=== PATIENT | female | born 1995 | race African-American/Black ===

== ENCOUNTER 2018-02-28 07:32 | Emergency (ER) | payer OTHER ==
[2018-02-28 07:43] VITALS: BP 134/77; PULSE 101; TEMP 98.3; BMI 36.0
[2018-02-28] MEDS ORDERED: ALBUTEROL SO4 2.5/IPRATROPIUM 0.5 INH SOL 3 ML VIAL.NEB. NEB ONE ×2 (08:07→08:30)
[2018-02-28] MEDS ORDERED: IBUPROFEN 600 MG TABLET (FP) PO ONE ×2 (08:44→09:33)
--- NOTE | 2018-02-28 08:46 | PDOC ---
History of Present Illness - General History Source: Patient Exam Limitations: No Limitations <Stacey Bojorquez - Last Filed: 02/28/18 09:49> - General History Source: Patient Exam Limitations: No Limitations - History of Present Illness Initial Comments: 02/28/18 09:10 The patient is a 22 year old female, with a significant past medical history of asthma (no meds or hospitalization), who presents to the emergency department complaining of chest tightness and sore throat since yesterday. She describes her chest pain tightness as mild, without radiation or modifying factors. She notes that it is hard for her to eat and swallow due to her sore throat. She denies any sick contacts or recent travel. The patient denies headache or dizziness. Denies fever, chills, nausea, vomiting, diarrhea and constipation. Allergies: None Past surgical history: None reported Social History: No alcohol, tobacco or drug use reported <Timmy Hendrix - Last Filed: 02/28/18 09:54> - General Chief Complaint: Sore Throat Stated Complaint: SORE THORAT, CHEST PAIN Past History - Past Medical History Asthma: Yes (LAST ATTACK AT 8 YEARS OLD) Cancer: No Cardiac Disorders: No COPD: No Diabetes: No HTN: No Psychiatric Problems: Yes (ANXIETY) Seizures: No Thyroid Disease: No - Immunization History Immunization Up to Date: Yes - Suicide/Smoking/Psychosocial Hx Smoking History: Never smoked Have you smoked in the past 12 months: No Hx Alcohol Use: No Drug/Substance Use Hx: No Substance Use Type: None Hx Substance Use Treatment: No <Stacey Bojorquez - Last Filed: 02/28/18 09:49> <Timmy Hendrix - Last Filed: 02/28/18 09:54> - Past Medical History Allergies/Adverse Reactions: Allergies Allergy/AdvReac Type Severity Reaction Status Date / Time Penicillins Allergy Verified 02/28/18 07:43 Home Medications: Ambulatory Orders Vit/Iron Fum/Folic AC [ Tablet] 1 each PO DAILY 01/17/16 Acetaminophen [Tylenol .Regular Strength -] 650 mg PO Q3H PRN #0 tablet Benzocaine [Americaine 20% [place] -] 1 spray TP PRN PRN #0 bottle 02/29/16 Docusate Sodium [Colace -] 100 mg PO BID #60 capsule 02/29/16 Ferrous Sulfate [Feosol] 325 mg PO DAILY #30 ud 02/29/16 Ibuprofen [Motrin -] 200 mg PO Q4H PRN #0 tablet 02/29/16 Witch Karol 50% (Tucks) [Tucks Pads -] 1 pad TP PRN PRN #0 pad 02/29/16 Fluticasone Prop 0.05% Nasal [Flonase -] 1 spray NS DAILY #1 bot 02/28/18 Loratadine [Claritin] 10 mg PO DAILY #30 tablet MDD 1 02/28/18 Review of Systems - Review of Systems Able to Perform ROS?: Yes Comments:: 02/28/18 09:11 GENERAL/CONSTITUTIONAL: No fever or chills. No weakness. HEAD, EYES, EARS, NOSE AND THROAT: (+) Sore throat. No change in vision. No ear pain or discharge. CARDIOVASCULAR: (+) Chest tightness. Shortness of breath. RESPIRATORY: No cough, wheezing, or hemoptysis. GASTROINTESTINAL: No nausea, vomiting, diarrhea or constipation. GENITOURINARY: No dysuria, frequency, or change in urination. MUSCULOSKELETAL: No joint or muscle swelling or pain. No neck or back pain. SKIN: No rash NEUROLOGIC: No headache, vertigo, loss of consciousness, or change in strength/ sensation. ENDOCRINE: No increased thirst. No abnormal weight change. HEMATOLOGIC/LYMPHATIC: No anemia, easy bleeding, or history of blood clots. ALLERGIC/IMMUNOLOGIC: No hives or skin allergy. <Timmy Hendrix - Last Filed: 02/28/18 09:54> *Physical Exam - Vital Signs Last Vital Signs Temp Pulse Resp BP Pulse Ox 98.3 F 101 H 20 134/77 99 02/28/18 07:40 02/28/18 07:40 02/28/18 07:40 02/28/18 07:40 02/28/18 07:40 <Stacey Bojorquez - Last Filed: 02/28/18 09:49> - Vital Signs Last Vital Signs Temp Pulse Resp BP Pulse Ox 98.3 F 101 H 20 134/77 99 02/28/18 07:40 02/28/18 07:40 02/28/18 07:40 02/28/18 07:40 02/28/18 07:40 - Physical Exam Comments: 02/28/18 09:11 GENERAL: Awake, alert, and fully oriented, in no acute distress HEAD: No signs of trauma EYES: PERRLA, EOMI, sclera anicteric, conjunctiva clear ENT: (+) Bilateral enlargement in nose, [place] in the posteriororopharynx. NECK: Normal ROM, supple, no JVD, or masses LUNGS: Breath sounds equal, clear to auscultation bilaterally. No wheezes, and no crackles HEART: Regular rate and rhythm, normal S1 and S2, no murmurs, rubs or gallops ABDOMEN: Soft, nontender, normoactive bowel sounds. No guarding, no rebound. No masses EXTREMITIES: Normal range of motion, no edema. No clubbing or cyanosis. No cords, erythema, or tenderness NEUROLOGICAL: Alert and oriented x 3. Moves all extremities. Face is symmetric. SKIN: Warm, Dry, normal turgor, no rashes or lesions noted. <Timym Hendrix - Last Filed: 02/28/18 09:54> ED Treatment Course - ADDITIONAL ORDERS Additional order review: Laboratory Results 02/28/18 08:30 Urine HCG, Qual Negative - RADIOLOGY Radiology Studies Ordered: Category Date Time Status CHEST PA & LAT [RAD] Stat Radiology 02/28/18 08:07 Ordered - Medications Given in the ED: ED Medications Discontinued Medications Generic Name Dose Route Start Last Admin Trade Name Freq PRN Reason Stop Dose Admin Albuterol/Ipratropium 1 amp 02/28/18 08:07 02/28/18 08:30 Duoneb - NEB 02/28/18 08:08 1 amp ONCE ONE Administration <Stacey Bojorquez - Last Filed: 02/28/18 09:49> - ADDITIONAL ORDERS Additional order review: Laboratory Results 02/28/18 08:30 Urine HCG, Qual Negative - Medications Given in the ED: ED Medications Discontinued Medications Generic Name Dose Route Start Last Admin Trade Name Freq PRN Reason Stop Dose Admin Albuterol/Ipratropium 1 amp 02/28/18 08:07 02/28/18 08:30 Duoneb - NEB 02/28/18 08:08 1 amp ONCE ONE Administration <Timmy Hendrix - Last Filed: 02/28/18 09:54> Medical Decision Making - Medical Decision Making 02/28/18 08:45 22 yo F with h/o asthma, here c/o sore throat and cheste tightness. no f/c. no sick contacts. did not take any meds prior to arrival. differential asthma, allergies, post nasal drip, viral pharyngitis, motrin, . plan cxr ekg. ucg. <Stacey Bojorquez - Last Filed: 02/28/18 09:49> *DC/Admit/Observation/Transfer - Discharge Dispostion Decision to Admit order: No <Stacey Bojorquez - Last Filed: 02/28/18 09:49> - Attestations Scribe Attestion: 02/28/18 09:11 Documentation prepared by Timmy Hendrix, acting as ophthalmic medical assistant for Stacey Bojorquez MD <Timmy Hendrix - Last Filed: 02/28/18 09:54> Diagnosis at time of Disposition: Post-nasal drip - Discharge Dispostion Disposition: HOME Condition at time of disposition: Improved - Prescriptions Prescriptions: Fluticasone Prop 0.05% Nasal [Flonase -] 1 spray NS DAILY #1 bot Loratadine [Claritin] 10 mg PO DAILY #30 tablet MDD 1 - Referrals Referrals: Nima Garcia MD [Primary Care Provider] - - Patient Instructions Printed Discharge Instructions: Allergic Rhinitis Additional Instructions: you should follow up with your primary doctor. use flonase one spray ea nostril daily. take Claritin D to help with post nasal drip. you can take motrin 600 mg every 8 hrs as needed for your pain. - Post Discharge Activity
== END 2018-02-28 10:10 | disposition home or self-care (01) ==
LOC: JER 07:32
PROC: 3E0F7GC Introduction of Other Therapeutic Substance into Respiratory Tract, Via Natural or Artificial Opening (ICD-10-PCS; principal; 2018-02-28)
DX: J30.89 Other allergic rhinitis (principal); R09.82 Postnasal drip
CPT/HCPCS: 71046-TC-FY; 84703; 94640; 99281-25; J7620

== ENCOUNTER 2018-12-15 08:21 | Emergency (ER) | payer OTHER ==
[2018-12-15 08:25] VITALS: BP 121/67; PULSE 89; TEMP 98.6; BMI 37.8
[2018-12-15] MEDS ORDERED: IBUPROFEN 400 MG TABLET (FP) PO ONE ×2 (08:36→08:42)
--- NOTE | 2018-12-15 08:48 | PDOC ---
History of Present Illness - General Chief Complaint: Sore Throat Stated Complaint: SORE THROAT Time Seen by Provider: 12/15/18 08:32 History Source: Patient Exam Limitations: No Limitations - History of Present Illness Initial Comments: 12/15/18 patient came with complaints of sore throat pain that started yesterday and is progressively worsen. Worsen this morning when she woke up. Denies fever, earache, but has some mild sore throat pain with postnasal drainage. No cough Timing/Duration: reports: just prior to arrival Severity: reports: mild, moderate Associated Symptoms: reports: cough, nasal congestion, sore throat Past History - Travel Traveled outside of the country in the last 30 days: No Close contact w/someone who was outside of country & ill: No - Past Medical History Allergies/Adverse Reactions: Allergies Allergy/AdvReac Type Severity Reaction Status Date / Time Penicillins Allergy Verified 12/15/18 08:22 Home Medications: Ambulatory Orders Albuterol Sulfate Inhaler - [Ventolin Hfa Inhaler -] 1 - 2 inh PO QID PRN Asthma: Yes (LAST ATTACK AT 8 YEARS OLD) Cancer: No Cardiac Disorders: No COPD: No Diabetes: No HTN: No Psychiatric Problems: Yes (ANXIETY) Seizures: No Thyroid Disease: No - Immunization History Immunization Up to Date: Yes - Suicide/Smoking/Psychosocial Hx Smoking History: Never smoked Have you smoked in the past 12 months: No Hx Alcohol Use: No Drug/Substance Use Hx: No Substance Use Type: None Hx Substance Use Treatment: No Review of Systems - Review of Systems Able to Perform ROS?: Yes Is the patient limited Malay proficient: Yes Constitutional: Yes: Symptoms Reported, See HPI, Malaise HEENTM: Yes: Symptoms Reported, See HPI, Nose Congestion, Throat Swelling, Difficulty Swallowing Respiratory: Yes: Symptoms reported, See HPI, Cough ABD/GI: No: Symptoms Reported Musculoskeletal: No: Symptoms Reported Integumentary: Yes: See HPI. No: Symptoms Reported Neurological: Yes: See HPI. No: Symptoms reported, Headache All Other Systems: Reviewed and Negative *Physical Exam - Vital Signs Last Vital Signs Temp Pulse Resp BP Pulse Ox 98.6 F 89 22 H 121/67 100 12/15/18 08:23 12/15/18 08:23 12/15/18 08:23 12/15/18 08:23 12/15/18 08:23 - Physical Exam General Appearance: Yes: Nourished, Appropriately Dressed, Apparent Distress, Mild Distress HEENT: positive: [place], Pharyngeal Erythema, Nasal Congestion, Rhinorrhea. negative: Normal ENT Inspection, TMs Normal (congested but clear), Pharynx Normal (mild erythema, no exudate or swelling noted to tonsils. Has some mild postnasal drainage noted clear), Tonsillar Exudate, Sinus Tenderness Neck: positive: Supple, Lymphadenopathy (R), Lymphadenopathy (L). negative: Tender Respiratory/Chest: positive: Lungs Clear, Normal Breath Sounds. negative: Respiratory Distress Gastrointestinal/Abdominal: positive: Soft. negative: Tender Musculoskeletal: positive: Normal Inspection Extremity: positive: Normal Capillary Refill, Normal Inspection Integumentary: positive: Dry, Warm, Pale Neurologic: positive: [employer] II-XII NML intact, Fully Oriented, Alert, Normal Mood/ Affect, Normal Response, Motor Strength 5/5 Moderate Sedation - Procedure Monitoring Vital Signs: Procedure Monitoring Vital Signs Temperature 98.6 F 12/15/18 08:23 Pulse Rate 89 12/15/18 08:23 Respiratory Rate 22 H 12/15/18 08:23 Blood Pressure 121/67 12/15/18 08:23 O2 Sat by Pulse Oximetry (%) 100 12/15/18 08:23 Progress Note - Progress Note Progress Note: Rapid strep test negative, no evidence of any other significant illness other than viral, will treat conservatively *DC/Admit/Observation/Transfer Diagnosis at time of Disposition: URI, acute - Discharge Dispostion Disposition: HOME Condition at time of disposition: Stable Decision to Admit order: No - Referrals Referrals: Nima Garcia MD [Primary Care Provider] - - Patient Instructions Printed Discharge Instructions: DI for Common Cold Additional Instructions: Rest, drink lots of fluids: Teas, water, soups, Pedialyte Saltwater gargles Steamy showers/seem to face break up mucus Avoid contact with others until fevers and cough resolved Lots of handwashing and good hygiene Continue [id number] medications for symptomatic relief Tylenol or Motrin for fever and pain Followup with private physician in one to 2 days as needed Return to emergency department for worsened symptoms, fevers, dehydration - Post Discharge Activity Forms/Work/School Notes: Back to Work
== END 2018-12-15 09:36 | disposition home or self-care (01) ==
LOC: JERFT 08:21
DX: J06.9 Acute upper respiratory infection, unspecified (principal); B97.89 Other viral agents as the cause of diseases classified elsewhere; Z87.09 Personal history of other diseases of the respiratory system
CPT/HCPCS: 87070; 87077; 87880; 99281-25

== ENCOUNTER 2019-04-10 23:49 | Emergency (ER) | payer OTHER ==
[2019-04-10 23:58] VITALS: BMI 38.2
--- NOTE | 2019-04-11 00:30 | PDOC ---
History of Present Illness - General History Source: Patient Exam Limitations: No Limitations - History of Present Illness Initial Comments: 04/11/19 00:24 Patient is a 23-year-old female with history of asthma with no intubations, here with complaints of right thigh swelling and pain 4 days. Patient states she had a little pimple which he thought was a here bump until picked at it, then noticed that it was getting red and swollen. Patient states she got hot flashes but did not think she had a fever and lightheadedness. Denies nausea, vomiting or chills. States took a hot shower today and the area started leaking a clear liquid PMD: Dr. Nima Garcia PMHX: As above PSOCHX: neg cig, neg drug, neg etoh ALL: PCN - body numbness/weakness GENERAL/CONSTITUTIONAL: No fever or chills. No weakness. No weight change. HEAD, EYES, EARS, NOSE AND THROAT: No change in vision. No ear pain or discharge. No sore throat. CARDIOVASCULAR: No chest pain or shortness of breath. RESPIRATORY: No cough, wheezing, or hemoptysis. GASTROINTESTINAL: No nausea, vomiting, diarrhea or constipation. No rectal bleeding. GENITOURINARY: No dysuria, frequency, or change in urination. MUSCULOSKELETAL: No joint or muscle swelling or pain. No neck or back pain. SKIN AND BREASTS: (+) rash (-) easy bruising. NEUROLOGIC: No headache, vertigo, loss of consciousness, or loss of sensation. PSYCHIATRIC: No depression or anxiety. ENDOCRINE: No increased thirst. No abnormal weight change. HEMATOLOGIC/LYMPHATIC: No anemia, easy bleeding, or history of blood clots. ALLERGIC/IMMUNOLOGIC: No hives or skin allergy. No latex allergy. GENERAL: The patient is awake, alert, and fully oriented, in no acute distress. HEAD: Normal with no signs of trauma. EYES: Pupils equal, round and reactive to light, extraocular movements intact, sclera anicteric, conjunctiva clear. ENT: Ears normal, nares patent, oropharynx clear without exudates. Moist mucous membranes. NECK: Normal range of motion, supple without lymphadenopathy, JVD, or masses. LUNGS: Breath sounds equal, clear to auscultation bilaterally. No wheezes, and no crackles. HEART: Regular rate and rhythm, normal S1 and S2 without murmur, rub. ABDOMEN: Soft, nontender, normoactive bowel sounds. No guarding, no rebound. No masses. EXTREMITIES: Normal range of motion, no edema. No clubbing or cyanosis. No cords, erythema, or tenderness. NEUROLOGICAL: Cranial nerves II through XII grossly intact. Normal speech, normal gait. PSYCH: Normal mood, normal affect. SKIN: Warm, (+) tender fluculent, erythemaous area to the left thigh, normal turgor. <Benedict Joyner - Last Filed: 04/11/19 04:40> <Cate Howe - Last Filed: 04/12/19 09:28> - General Chief Complaint: Abscess Boil Stated Complaint: ABSCESS BOIL Time Seen by Provider: 04/11/19 00:19 Past History - Past Medical History Asthma: Yes (LAST ATTACK AT 8 YEARS OLD) Cancer: No Cardiac Disorders: No COPD: No Diabetes: No HTN: No Psychiatric Problems: Yes (ANXIETY) Seizures: No Thyroid Disease: No - Immunization History Immunization Up to Date: Yes - Suicide/Smoking/Psychosocial Hx Smoking History: Unknown if ever smoked Have you smoked in the past 12 months: No Information on smoking cessation initiated: No Hx Alcohol Use: No Drug/Substance Use Hx: No Substance Use Type: None Hx Substance Use Treatment: No <Benedict Joyner - Last Filed: 04/11/19 04:40> <Cate Howe - Last Filed: 04/12/19 09:28> - Past Medical History Allergies/Adverse Reactions: Allergies Allergy/AdvReac Type Severity Reaction Status Date / Time Penicillins Allergy Verified 04/11/19 01:37 Home Medications: Ambulatory Orders Albuterol Sulfate Inhaler - [Ventolin Hfa Inhaler -] 1 - 2 inh PO QID PRN *Physical Exam - Vital Signs Last Vital Signs Temp Pulse Resp BP Pulse Ox 100 F H 131 H 20 129/81 99 04/10/19 23:51 04/10/19 23:51 04/10/19 23:51 04/10/19 23:51 04/10/19 23:51 <Benedict Joyner - Last Filed: 04/11/19 04:40> - Vital Signs Last Vital Signs Temp Pulse Resp BP Pulse Ox 97.4 F L 96 H 18 127/76 98 04/11/19 03:39 04/11/19 03:39 04/11/19 03:39 04/11/19 03:39 04/11/19 03:39 <Cate Howe - Last Filed: 04/12/19 09:28> Procedures - Incision and Drainage I&D Site: Left: Leg (thigh) Anesthesia: 1% Lidocaine Blade Size: 11 Plain Packing: Yes Complications: none Dressing: Yes (dry sterile gauze) <Benedict Joyner - Last Filed: 04/11/19 04:40> ED Treatment Course - Medications Given in the ED: ED Medications Discontinued Medications Generic Name Dose Route Start Last Admin Trade Name Radha PRN Reason Stop Dose Admin Clindamycin HCl 300 mg 04/11/19 00:31 04/11/19 01:05 Cleocin - PO 04/11/19 00:32 300 mg ONCE ONE Administration Ibuprofen 600 mg 04/11/19 00:34 04/11/19 01:05 Motrin - PO 04/11/19 00:35 600 mg ONCE ONE Administration Oxycodone/Acetaminophen 1 combo 04/11/19 00:32 04/11/19 01:05 Percocet 5/325 - PO 04/11/19 00:33 1 combo ONCE ONE Administration <Cate Howe - Last Filed: 04/12/19 09:28> Medical Decision Making - Medical Decision Making 04/11/19 00:24 Patient is a 23-year-old female with history of asthma with no intubations, here with complaints of right thigh swelling and pain 4 days. Patient states she had a little pimple which he thought was a here bump until picked at it, then noticed that it was getting red and swollen. Patient states she got hot flashes but did not think she had a fever and lightheadedness. Denies nausea, vomiting, fever, chills. States took a hot shower today and the area started leaking a clear liquid. Symptoms concerning for cellulitis with an abscess. Aspiration done noted to have purulent material. I&D done Patient continues to have elevated pulse. Will treat with Motrin and by mouth fluids and repeat vital signs. 04/11/19 03:26 Pulse rate 96 Selected Entries 04/11/19 03:39 Temperature 97.4 F L Pulse Rate [ 96 H Left] Respiratory 18 Rate Blood Pressure 127/76 [Right Arm] O2 Sat by Pulse 98 Oximetry (%) I discussed the physical exam findings, ancillary test results and final diagnoses with the patient. I answered all of the patient's questions. The patient was satisfied with the care received and felt comfortable with the discharge plan and treatment plan. The Patient agrees to follow up with the primary care physician within 24-72 hours. <Benedict Joyner - Last Filed: 04/11/19 04:40> *DC/Admit/Observation/Transfer <Benedict Joyner - Last Filed: 04/11/19 04:40> - Attestations Physician Attestion: I reviewed the case with the mid-level practitioner and agree with the mid- level practitioner's assessment, diagnosis and disposition. <HoweNinfaCate - Last Filed: 04/12/19 09:28> Diagnosis at time of Disposition: Abscess Cellulitis Qualifiers: Site of cellulitis: extremity Site of cellulitis of extremity: lower extremity Laterality: left Qualified Code(s): L03.116 - Cellulitis of left lower limb - Discharge Dispostion Disposition: HOME Condition at time of disposition: Stable - Referrals Referrals: Nima Garcia MD [Primary Care Provider] - - Patient Instructions Printed Discharge Instructions: DI for Cellulitis -- Adult, DI for Skin Abscess Additional Instructions: Your Discharge Instructions: You must call primary care physician within 24 hours to arrange follow-up. Return to the Emergency Department with any new, persistent or worsening symptoms, for fever, chills, SOB, dizziness or any other concerning changes that may occur. Continue Tylenol and Motrin for ear pain and fever. Return to your PMD or fast track emergency room in 48 hours for wound check. Take antibiotics as prescribed until it is completed. Warm compress to the area as often as it can be done. - Post Discharge Activity Forms/Work/School Notes: Back to Work
[2019-04-11] MEDS ORDERED: CLINDAMYCIN HCL 300 MG CAPSULE PO ONE (00:31)
[2019-04-11] MEDS ORDERED: IBUPROFEN 600 MG TABLET (FP) PO ONE ×2 (00:34→00:59)
[2019-04-11] MEDS ORDERED: CLINDAMYCIN HCL 150 MG CAPSULE (FP) ONE (00:59)
[2019-04-11 03:41] VITALS: BP 127/76; PULSE 96; TEMP 97.4
== END 2019-04-11 03:41 | disposition home or self-care (01) ==
LOC: JER 23:49
PROC: 0J9P0ZZ Drainage of Left Lower Leg Subcutaneous Tissue and Fascia, Open Approach (ICD-10-PCS; principal; 2019-04-10)
DX: L03.116 Cellulitis of left lower limb (principal)
CPT/HCPCS: 10060; 99282-25

== ENCOUNTER 2019-07-15 16:31 | Emergency (ER) | payer OTHER ==
[2019-07-15] MEDS ORDERED: SODIUM CHLORIDE 0.9% 500 ML INFUS.BAG IV ONE (17:11)
[2019-07-15] MEDS ORDERED: diphenhydrAMINE HCL 25 MG CAPSULE (FP) PO ONE (17:11)
[2019-07-15] MEDS ORDERED: METOCLOPRAMIDE HCL INJECTION 10 MG/2 ML VIAL IVPUSH ONE (17:11)
[2019-07-15] MEDS ORDERED: ACETAMINOPHEN 1000 MG/100 ML VIAL (NON FORMULARY) IVPB ONE (17:11)
[2019-07-15 17:12] VITALS: BMI 37.0
[2019-07-15] MEDS ORDERED: METOCLOPRAMIDE HCL INJECTION 10 MG/2 ML VIAL ONE (17:15)
[2019-07-15] MEDS ORDERED: LORazepam 2 MG/ML SDV VIAL ONE ×2 (17:15→18:35)
[2019-07-15] MEDS ORDERED: ACETAMINOPHEN INJECTION 100 ML IVPB ONE (17:16)
[2019-07-15] MEDS ORDERED: diazePAM 5 MG TABLET PO ONE (17:24)
--- NOTE | 2019-07-15 17:26 | PDOC ---
History of Present Illness - General History Source: Patient Exam Limitations: No Limitations - History of Present Illness Initial Comments: Faviola Mares is a 23 yo F who denies having any pmh who presents to the [facility] er with a headache after she fell and bumped her head on Friday. The patient went to [facility] where she had a cat scan performed which was negative and she was diagnosed with a head contusion. The patient now states that her headache has persisted and she has significant pain whenever she sees light or hears any noise. She states the pain is localized to the left side of her head. The headache is associated with thumping. Patient endorses nausea but no emesis. The patient states that since yesterday her right leg has been shaking and she cannot get it to stop shaking. She states that she is able to walk with ease but her leg wont stop shaking. When she tries to stand on her right leg she states that her left leg starts shaking. PCP: Nima garcia PSH: None reported Social Hx: Denies smoking, drinking, or other substance abuse Allergies: Penicillins <Rancho Bautista - Last Filed: 07/15/19 19:08> <Carey Campbell - Last Filed: 07/16/19 22:09> - General Chief Complaint: Migraine Headache Stated Complaint: LEG WEAKNESS Time Seen by Provider: 07/15/19 16:59 Past History - Past Medical History Asthma: Yes (LAST ATTACK AT 8 YEARS OLD) Cancer: No Cardiac Disorders: No COPD: No Diabetes: No HTN: No Psychiatric Problems: Yes (ANXIETY) Seizures: No Thyroid Disease: No - Immunization History Immunization Up to Date: Yes - Psycho Social/Smoking Cessation Hx Smoking History: Never smoked Have you smoked in the past 12 months: No Information on smoking cessation initiated: No Hx Alcohol Use: No Drug/Substance Use Hx: No Substance Use Type: None Hx Substance Use Treatment: No <Rancho Bautista - Last Filed: 07/15/19 19:08> <Carey Campbell - Last Filed: 07/16/19 22:09> - Past Medical History Allergies/Adverse Reactions: Allergies Allergy/AdvReac Type Severity Reaction Status Date / Time Penicillins Allergy Verified 04/11/19 01:37 Home Medications: Ambulatory Orders Albuterol Sulfate Inhaler - [Ventolin Hfa Inhaler -] 1 - 2 inh PO QID PRN Review of Systems - Review of Systems Able to Perform ROS?: Yes Comments:: CONSTITUTIONAL: Absent: fever, no chills, no fatigue EYES: Present: photophobia Absent: visual changes ENT: Absent: ear pain, no sore throat CARDIOVASCULAR: Absent: chest pain, no palpitations RESPIRATORY: Absent: cough, no SOB GI: Present: Nausea Absent: abdominal pain, no vomiting, no constipation, no diarrhea GENITOURINARY: Absent: dysuria, no frequency, no hematuria MUSKULOSKELETAL: Absent: back pain, no arthralgia, no myalgia SKIN: Absent: rash NEURO: Present: headache <Rancho Bautista - Last Filed: 07/15/19 19:08> *Physical Exam - Vital Signs Last Vital Signs Temp Pulse Resp BP Pulse Ox 99.5 F 110 H 18 150/90 99 07/15/19 17:08 07/15/19 17:08 07/15/19 17:08 07/15/19 17:08 07/15/19 17:08 - Physical Exam Comments: GENERAL: Well-appearing, well-nourished. No apparent distress. HEENT: Normocephalic, atraumatic. PERRL, EOM intact. CARDIOVASCULAR: Tachycardic rate. Normal S1, S2. Regular rhythm. PULMONARY: No evidence of respiratory distress. Lungs clear to auscultation bilaterally. No wheezing, rales or rhonchi. ABDOMEN: Soft, non-distended, non-tender. EXTREMITIES: The right leg is persistently shaking. Normal ROM in all four extremities. No gross deformities. SKIN: Warm, dry. No rash NEUROLOGICAL: Alert, awake, appropriate. Cranial nerves 2-12 intact. No deficits to light touch in face, upper extremities and lower extremities. No motor deficits in the in face, upper extremities and lower extremities. Normoreflexic in the upper and lower extremities. Normal speech. Toes are down-going bilaterally. Gait is normal without ataxia. <Rancho Bautista - Last Filed: 07/15/19 19:08> - Vital Signs Last Vital Signs Temp Pulse Resp BP Pulse Ox 98.1 F 78 18 127/79 100 07/15/19 18:43 07/15/19 18:43 07/15/19 18:43 07/15/19 18:43 07/15/19 18:43 <Carey Campbell - Last Filed: 07/16/19 22:09> ED Treatment Course - LABORATORY CBC & Chemistry Diagram: 07/15/19 17:30 07/15/19 17:30 <Rancho Bautista - Last Filed: 07/15/19 19:08> - LABORATORY CBC & Chemistry Diagram: 07/15/19 17:30 07/15/19 17:30 - ADDITIONAL ORDERS Additional order review: 07/15/19 17:30 RBC 4.59 MCV 83.6 MCHC 33.7 RDW 14.4 MPV 8.7 Neutrophils % 47.0 D Lymphocytes % 42.9 H D Monocytes % 7.9 Eosinophils % 1.7 D Basophils % 0.5 - Medications Given in the ED: ED Medications Discontinued Medications Generic Name Dose Route Start Last Admin Trade Name Radha PRN Reason Stop Dose Admin Acetaminophen 1,000 mg 07/15/19 17:11 07/15/19 17:33 Ofirmev Injection - IVPB 07/15/19 17:12 1,000 mg ONCE ONE Administration Diazepam 5 mg 07/15/19 17:24 07/15/19 18:02 Valium - PO 07/15/19 17:25 5 mg ONCE ONE Administration Diphenhydramine HCl 25 mg 07/15/19 17:11 07/15/19 17:47 Benadryl - PO 07/15/19 17:12 Not Given ONCE ONE Diphenhydramine HCl 25 mg 07/15/19 17:45 07/15/19 17:33 Benadryl Injection - IVPUSH 07/15/19 17:46 25 mg ONCE ONE Administration Lorazepam 1 mg 07/15/19 17:12 07/15/19 17:48 Ativan Injection - IVPUSH 07/15/19 17:13 Not Given ONCE ONE Lorazepam 1 mg 07/15/19 18:23 07/15/19 18:40 Ativan Injection - IVPUSH 07/15/19 18:24 1 mg ONCE ONE Administration Metoclopramide HCl 10 mg 07/15/19 17:11 07/15/19 17:34 Reglan Injection - IVPUSH 07/15/19 17:12 10 mg ONCE ONE Administration Sodium Chloride 1,000 ml 07/15/19 17:11 07/15/19 17:33 Normal Saline - IV 07/15/19 17:12 1,000 ml ONCE ONE Administration <Carey Campbell - Last Filed: 07/16/19 22:09> Medical Decision Making - Medical Decision Making Faviola Mares is a 23 yo F who denies having any pmh who presents to the [facility] er with a headache after she fell and bumped her head on Friday. The patient went to [facility] where she had a cat scan performed which was negative and she was diagnosed with a head contusion. The patient now states that her headache has persisted and she has significant pain whenever she sees light or hears any noise. She states the pain is localized to the left side of her head. The headache is associated with thumping. Patient endorses nausea but no emesis. The patient states that since yesterday her right leg has been shaking and she cannot get it to stop shaking. She states that she is able to walk with ease but her leg wont stop shaking. When she tries to stand on her right leg she states that her left leg starts shaking. Vital Signs Temp Pulse Resp BP Pulse Ox 99.5 F 110 H 18 150/90 99 07/15/19 17:08 07/15/19 17:08 07/15/19 17:08 07/15/19 17:08 07/15/19 17:08 DDx IBNLT: Headache - likely migrain less likely tension vs cluster, ICH, head contusion Plan: Labs, EKG, hcg, reglan, benadryl, IVNS, tylenol, re-assess Labs: Unremarkable Hcg: Negative EKG: NS rate of 91, narrow complexes, normal axis, no hypertrophy, benign early repol, QTc 447, DC 140 Re-assessment: Patient feels much better and requests to be discharged. She no longer has leg shaking or a headache. Disposition: Home with PCP and neuro FU <Rancho Bautista - Last Filed: 07/15/19 19:08> Discharge - Discharge Information Problems reviewed: Yes - Admission No <Rancho Bautista - Last Filed: 07/15/19 19:08> <Carey Campbell - Last Filed: 10/04/19 22:09> - Discharge Information Clinical Impression/Diagnosis: Headache Qualifiers: Headache type: unspecified Headache chronicity pattern: acute headache Intractability: not intractable Qualified Code(s): R51 - Headache Condition: Stable Disposition: HOME - Follow up/Referral Referrals: Nima Garcia MD [Non Staff, Medical] - Elizabeth Chavarria MD [Staff Physician] - Sudeep Alcantara MD [Staff Physician] - Luis Taylor MD [Staff Physician] - - Patient Discharge Instructions Patient Printed Discharge Instructions: Migraine Headaches (Alternative Therapy ), DI for Migraine, DI for Headache Additional Instructions: You came into the Er with a headache. We gave you some medications which made you feel better. Please make sure to follow up with a neurologist we are referring you to in the next 3 to 5 days. Come back to the ER immediately if your pain worsens or you have any other new or worsening concerns. Thank you for coming to the [facility] ER. We hope you feel better soon! Print Language: MOHAWK - Post Discharge Activity Work/Back to School Note: Back to Work, Back to School
[2019-07-15 17:49] LABS: BASO % 0.5 % (0-2.0); EOS % 1.7 % (0-4.5); HEMATOCRIT 38.4 % (32.4-45.2); HEMOGLOBIN 12.9 GM/dL (10.7-15.3); LYMPH % 42.9 % (8-40); MCH 28.2 pg (25.7-33.7); MCHC 33.7 g/dl (32.0-36.0); MEAN CELL VOLUME 83.6 fl (80-96); MEAN PLT VOLUME 8.7 fl (7.5-11.1); MONO % 7.9 % (3.8-10.2); PLATELET COUNT 257 K/MM3 (134-434); RBC 4.59 M/mm3 (3.60-5.2); RDW 14.4 % (11.6-15.6); WHITE BLOOD COUNT 6.4 K/mm3 (4.0-10.0)
[2019-07-15] MEDS ORDERED: diazePAM 5 MG TABLET ONE (17:58)
--- NOTE | 2019-07-15 18:10 | PDOC ---
Attending Attestation - Resident Resident Name: Rancho Bautista - ED Attending Attestation I have performed the following: I have examined & evaluated the patient, The case was reviewed & discussed with the resident, I agree w/resident's findings & plan - HPI HPI: 07/15/19 18:06 Faviola Mares is a 23 yo F who denies having any pmh who presents to the [facility] er with a headache after she fell and bumped her head on Friday ~2 days ago. The patient went to [facility] where she had a cat scan performed which was negative and she was diagnosed with a head contusion/concussion. The patient now states that her headache has persisted and she has significant pain whenever she sees light or hears any noise. She states the pain is localized to the left side of her head. The headache is associated with "thumping" and generalized, +nausea; no vomiting. The patient states that since yesterday her right leg has been shaking and she cannot get it to stop shaking. She states that she is able to walk with ease but her leg wont stop shaking. When she tries to stand on her right leg she states that her left leg starts shaking. no LOC/SZ/AMS. no focal weakness or paresthesias. - Physicial Exam PE: 07/15/19 18:08 Agree with the resident's HPI and PE as documented in the electronic medical record. NAD, well appearing, EOMI, PERRL, MMM, nl conjunctiva, anicteric; neck supple. lungs clear, RRR, abdomen soft nontender. Back nontender. MORA x4, no focal neuro deficits. SILT in all extrem. 5/5 prox and distal strength in all extrem. +right foot shaking, no clonus. No peripheral edema. normal color for ethnicity , WWP. no calf tenderness. speech clear. - Medical Decision Making 07/15/19 18:09 See HPI for details. Prior notes reviewed, including admissions, discharges and consultations. Vital Signs Temp Pulse Resp BP Pulse Ox 99.5 F 110 H 18 150/90 99 07/15/19 17:08 07/15/19 17:08 07/15/19 17:08 07/15/19 17:08 07/15/19 17:08 Vital signs reviewed, +tachycardia, but also +headache and in pain. no fevers no systemic findings laboratory results and imaging reviewed, basic labs and lytes wnl, ED course: given analgesia, IVF, repeat VS improved,, no longer tachy as initially likely from ONEAL/pain. valium for leg shaking/restlessness no focal neuro deficits no imaging indcated at this time with neg imaging at OSH, likely post concussive syndrome. headache has improved on reeval down to 2-3/. shaking improved discharge, stable condition, neuro followup outpatient, referrals given, return precautions. concussive symptoms provided as likely etiology of presentation. 07/16/19 22:07 07/16/19 22:08 Heart Score/ECG Review #1 ECG reviewed & interpreted by me at: 18:15 General ECG Interpretation: Sinus Rhythm, Normal Rate, Normal Intervals Compared to previous ECG there are: Previous ECG unavail
[2019-07-15 18:23] LABS: ALBUMIN 4.2 g/dl (3.4-5.0); BILIRUBIN,TOTAL 0.3 mg/dL (0.2-1); BLOOD UREA NITROGEN 9.3 mg/dL (7-18); CREATININE 0.8 mg/dL (0.55-1.3); POTASSIUM 4.6 mmol/L (3.5-5.1); TOT PROT 8.1 g/dl (6.4-8.2)
[2019-07-15 18:51] VITALS: BP 127/79; PULSE 78; TEMP 98.1
--- NOTE | 2019-07-16 12:20 | EKG ---
Test Reason : Blood Pressure : / mmHG Vent. Rate : 091 BPM Atrial Rate : 091 BPM P-R Int : 140 ms QRS Dur : 076 ms QT Int : 364 ms P-R-T Axes : 025 029 024 degrees QTc Int : 447 ms POOR DATA QUALITY, INTERPRETATION MAY BE ADVERSELY AFFECTED NORMAL SINUS RHYTHM NORMAL ECG NO PREVIOUS ECGS AVAILABLE Confirmed by VIRGILIO PENALOZA MD ([id number]) on 07/16/2019 12:20:28 PM Referred By: Confirmed By:VIRGILIO PENALOZA MD
== END 2019-07-15 19:05 | disposition home or self-care (01) ==
LOC: JER 16:31
PROC: 3E033NZ Introduction of Analgesics, Hypnotics, Sedatives into Peripheral Vein, Percutaneous Approach (ICD-10-PCS; principal; 2019-07-15)
PROC: 3E033NZ Introduction of Analgesics, Hypnotics, Sedatives into Peripheral Vein, Percutaneous Approach (ICD-10-PCS; 2019-07-15)
PROC: 3E033GC Introduction of Other Therapeutic Substance into Peripheral Vein, Percutaneous Approach (ICD-10-PCS; 2019-07-15)
PROC: 3E033GC Introduction of Other Therapeutic Substance into Peripheral Vein, Percutaneous Approach (ICD-10-PCS; 2019-07-15)
DX: R51 Headache (principal); W19.XXXD Unspecified fall, subsequent encounter
CPT/HCPCS: 36415; 80053; 83605; 83735; 84703; 85025; 93005; 93010; 99284-25; J0131

== ENCOUNTER 2019-08-11 11:14 | Emergency (ER) | payer OTHER ==
[2019-08-11 11:19] VITALS: BP 127/76; PULSE 85; TEMP 99; BMI 38.6
[2019-08-11] MEDS ORDERED: KETOROLAC TROMETHAMINE 30 MG/1 ML VIAL IVPUSH ONE (11:46)
[2019-08-11] MEDS ORDERED: SODIUM CHLORIDE 0.9% 500 ML INFUS.BAG IV ONE (11:46)
[2019-08-11] MEDS ORDERED: METOCLOPRAMIDE HCL INJECTION 10 MG/2 ML VIAL IVPUSH ONE (11:46)
--- NOTE | 2019-08-11 11:46 | PDOC ---
History of Present Illness - General Chief Complaint: Headache Stated Complaint: HEADACHE Time Seen by Provider: 08/11/19 11:36 - History of Present Illness Initial Comments: 08/11/19 11:41 CHIEF COMPLAINT: headache HISTORY OF PRESENT ILLNESS: 23 yo F with no PMH presents to [facility] for headache since last night. Patient reports she has been having intermittent headaches after falling and hitting her head on the wall a few weeks ago. She was seen at [facility] where she was diagnosed with a concussion. Patient reports photophobia but denies nausea/vomiting. LMP was two weeks ago, denies any chance of . No recent travel or sick contacts. PAST MEDICAL HISTORY: recent head injury/concussion FAMILY HISTORY: Denies SOCIAL HISTORY: Denies tobacco, alcohol, illicit drug use. SURGICAL HISTORY: Denies ALLERGIES: No known drug allergies REVIEW OF SYSTEMS General/Constitutional: Denies fever or chills. Denies weakness, weight change. HEENT: Denies change in vision. Denies ear pain or discharge. Denies sore throat. Cardiovascular: Denies chest pain or shortness of breath. Respiratory: Denies cough, wheezing, or hemoptysis. Gastrointestinal: Denies nausea, vomiting, diarrhea or constipation. Denies rectal bleeding. Genitourinary: Denies dysuria, frequency, or change in urination. Musculoskeletal: Denies joint or muscle swelling or pain. Denies neck or back pain. Skin and breasts: Denies rash or easy bruising. Neurologic: Headache x 1 day. Denies vertigo, loss of consciousness, or loss of sensation. Psychiatric: Denies depression or anxiety. PHYSICAL EXAM General Appearance: Well-appearing, appropriately dressed. No apparent distress , no intoxication. HEENT: EOMI, PERRLA, normal ENT inspection, normal voice, TMs normal, pharynx normal. No conjunctival pallor. No photophobia, scleral icterus. Neck: Supple. Trachea midline. No tenderness, rigidity, carotid bruit, stridor , lymphadenopathy, or thyromegaly. Respiratory/Chest: Lungs CTAB. No shortness of breath, chest tenderness, respiratory distress, accessory muscle use. No crackles, rales, rhonchi, stridor , wheezing, dullness Cardiovascular: RRR. S1, S2. No JVD, murmur, bradycardia, tachycardia. Vascular Pulses: Dorsalis-Pedis (R): 2+, Dorsalis-Pedis (L): 2+ Gastrointestinal/Abdominal: Normal bowel sounds. Abdomen soft, non-distended. No tenderness or rebound tenderness. No organomegaly, pulsatile mass, guarding , hernia, hepatomegaly, splenomegaly. Lymphatic: No adenopathy, tenderness. Musculoskeletal/Extremities: Normal inspection. FROM of all extremities, normal capillary refill. Pelvis Stable. No CVA tenderness. No tenderness to extremities, pedal edema, swelling, erythema or deformity. Integumentary: Appropriate color, dry, warm. No cyanosis, erythema, jaundice or rash Neurologic: inspector material disposition II-XII intact. Fully oriented, alert. Appropriate mood/affect. Motor strength 5/5. No appreciable EOM palsy, facial droop or sensory deficit. Past History - Past Medical History Allergies/Adverse Reactions: Allergies Allergy/AdvReac Type Severity Reaction Status Date / Time Penicillins Allergy Verified 08/11/19 11:19 Home Medications: Ambulatory Orders Albuterol Sulfate Inhaler - [Ventolin Hfa Inhaler -] 1 - 2 inh PO QID PRN Asthma: Yes (LAST ATTACK AT 8 YEARS OLD) Cancer: No Cardiac Disorders: No COPD: No Diabetes: No HTN: No Psychiatric Problems: Yes (ANXIETY) Seizures: No Thyroid Disease: No - Immunization History Immunization Up to Date: Yes - Psycho Social/Smoking Cessation Hx Smoking History: Never smoked Have you smoked in the past 12 months: No Information on smoking cessation initiated: No Hx Alcohol Use: No Drug/Substance Use Hx: No Substance Use Type: None Hx Substance Use Treatment: No *Physical Exam - Vital Signs Last Vital Signs Temp Pulse Resp BP Pulse Ox 99 F 85 19 127/76 99 08/11/19 11:17 08/11/19 11:17 08/11/19 11:17 08/11/19 11:17 08/11/19 11:17 Medical Decision Making - Medical Decision Making 08/11/19 13:08 23 yo F with no PMH presents to [facility] since last night. -toradol,. reglan, benadryl -IVF patient reports feeling better after administration of meds Advised patient to take medication as prescribed and follow up with neurology within the next week. Advised patient of signs and symptoms for return to ED. Patient verbalized understanding and agrees to plan. Discharge - Discharge Information Problems reviewed: Yes Clinical Impression/Diagnosis: Post concussion syndrome Condition: Stable Disposition: HOME - Admission No - Follow up/Referral Referrals: Danelle Vieira MD [Primary Care Provider] - - Patient Discharge Instructions Patient Printed Discharge Instructions: DI for Postconcussion Syndrome Additional Instructions: Please follow up with neurology within the next week for continued management of your symptoms. If you develop persistent vomiting, change in vision, difficulty speaking or walking, or any new or worsening symptoms, please return to the ER. - Post Discharge Activity
[2019-08-11] MEDS ORDERED: METOCLOPRAMIDE HCL INJECTION 10 MG/2 ML VIAL ONE (11:48)
[2019-08-11] MEDS ORDERED: KETOROLAC TROMETHAMINE 30 MG/1 ML VIAL ONE (11:48)
== END 2019-08-11 13:24 | disposition home or self-care (01) ==
LOC: JERFT 11:14
PROC: 3E0333Z Introduction of Anti-inflammatory into Peripheral Vein, Percutaneous Approach (ICD-10-PCS; principal; 2019-08-11)
PROC: 3E033GC Introduction of Other Therapeutic Substance into Peripheral Vein, Percutaneous Approach (ICD-10-PCS; 2019-08-11)
DX: F07.81 Postconcussional syndrome (principal); Z88.0 Allergy status to penicillin; F41.9 Anxiety disorder, unspecified; J45.909 Unspecified asthma, uncomplicated
CPT/HCPCS: 96374; 96375; 99281-25

== ENCOUNTER 2021-05-03 22:12 | Emergency (ER) | payer OTHER ==
[2021-05-03 22:22] VITALS: BP 135/66; PULSE 116; TEMP 98.8; BMI 42.9
[2021-05-03] MEDS ORDERED: OXYMETAZOLINE 0.05% NASAL SOLUTION 15 ML BOTTLE NS ONE (22:59)
== END 2021-05-04 01:42 | disposition home or self-care (01) ==
LOC: JER 22:12
DX: J06.9 Acute upper respiratory infection, unspecified (principal)
CPT/HCPCS: 87804; 99283-25; C9803; U0003; U0005